=== PATIENT | male | born 1960 | race African-American/Black ===

== ENCOUNTER 2025-07-25 12:39 | Emergency (ER) | payer MEDICARE, MEDICAID ==
[~2025-07-25] VITALS: Ht 188 cm; Wt 84.0 kg
[2025-07-25 12:42] VITALS: O2SAT 95
[2025-07-25 13:25] LABS: BASOPHILS % 0.9 % (0.0-2.0); EOSINOPHILS % 0.6 % (0.0-5.0); HEMATOCRIT. 46.6 % (42.0-52.0); HEMOGLOBIN. 15.0 g/dL (14.0-18.0); LYMPHOCYTES % 27.9 % (20.0-50.0); MEAN PLATELET VOLUME 7.8 fl (7.4-10.4); MONOCYTES % 11.7 % (2.0-8.0); NEUTROPHILS % 58.9 % (40.0-76.0); PLATELET 203 x1000/uL (130-400); RED BLOOD CELL COUNT 5.00 mill/uL (4.7-6.1); RED CELL DISTRIBUTION WIDTH 13.7 % (11.6-14.6)
[2025-07-25] MEDS: SODIUM CHLORIDE 0.9% 1,000 ML IV ONE (13:42)
[2025-07-25] MEDS: ONDANSETRON HCL 4MG/2ML INJ IV ONE (13:42)
[2025-07-25 13:43] LABS: CREATININE 1.6 mg/dL (0.6-1.3)
[2025-07-25 13:44] LABS: PROTEIN TOTAL 7.7 g/dL (6.0-8.3); UREA NITROGEN BLOOD 7 mg/dL (9-23)
[2025-07-25 13:45] LABS: ASPARTATE AMINOTRANSFERASE 29 IU/L (<34); TROPONIN I HIGH SENSITIVITY 8 ng/L (3.0-53)
[2025-07-25 13:46] LABS: BILIRUBIN DIRECT 0.2 mg/dL (<=3.0); BILIRUBIN TOTAL 0.8 mg/dL (0.1-1.0)
[2025-07-25] MEDS: IOHEXOL-350 100 ML BOTTLE ONE (15:22)
[2025-07-25 15:32] LABS: CLARITY URINE CLEAR (CLEAR); COLOR URINE YELLOW (YELLOW); GLUCOSE URINE NEGATIVE (NEGATIVE); KETONES URINE NEGATIVE (NEGATIVE); LEUKOCYTE ESTERASE URINE NEGATIVE (NEGATIVE); NITRITE URINE NEGATIVE (NEGATIVE); OCCULT BLOOD URINE NEGATIVE (NEGATIVE); PH URINE 6.5 (4.5-8.0); PROTEIN URINE NEGATIVE (NEGATIVE); SPECIFIC GRAVITY URINE 1.016 (1.005-1.030); UROBILINOGEN URINE 0.2 E.U./dL (0.2-1.0)
[2025-07-25 16:41] VITALS: BP 115/64; PULSE 66; RESP 24; TEMP 36.9; O2SAT 95
== END 2025-07-25 16:45 | disposition left against medical advice (07) ==
LOC: ER 12:39 → EDBEDREQTM 15:08 → EDBEDREQ 15:08 → ER 16:45 → CMPBEDREQ 07-26 08:26
DX: R55 Syncope and collapse (principal); R42 Dizziness and giddiness; I10 Essential (primary) hypertension; I69.30 Unspecified sequelae of cerebral infarction; R79.1 Abnormal coagulation profile; R06.02 Shortness of breath
CPT/HCPCS: 99285; 71275; 96360; 71045; 96361; 80076; 80048; 81003; 83880; 83735; 85025; 85379; 87040; 84484; 36415; 70450; 93005; Q9967; J7030; A4615